=== PATIENT | female | born 1960 | race Caucasian/White ===

== ENCOUNTER 2017-04-28 13:50 | Day surgery (SDC) | payer MEDICAID ==
[2017-04-28] MEDS ORDERED: LR 1,000 ML IV ONE (14:10)
[2017-04-28] MEDS ORDERED: LIDOCAINE 1% 2 ML INJ ID PRN (14:10)
[2017-04-28 14:27] VITALS: PULSE 105
[2017-04-28] MEDS ORDERED: PROPOFOL/EMULSION 500 MG/50 ML BOTTLE IV ONE (14:38)
[2017-04-28] MEDS ORDERED: fentaNYL 100 MCG/2 ML INJ ONE (14:38)
[2017-04-28] MEDS ORDERED: LIDOCAINE 2% 100 MG/5 ML SYR ONE (14:38)
--- NOTE | 2017-04-28 14:42 | PDHPUP ---
History & Physical Update H&P update statement: This history and physical update is based on an assessment of the patient which was completed after admission or registration (within 24 hours), but prior to the surgery/procedure. H&P update: H&P reviewed & patient examined, no change in patient's condition since H&P completed
--- NOTE | 2017-04-28 14:59 | POSTOPPROG ---
Post Op Note Date of Operation: 04/28/17 Surgeon: Marshall Smith Pre-op Diagnosis: Colovesicular fistula. Family h/o CRC Post-op Diagnosis: Diverticulosis. Inf/Abcess present in the surg proc area at time of surgery?: No
--- NOTE | 2017-04-28 15:01 | PDANEPAE ---
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 - Liver History Hx Hepatic Disorders: No - Neurological & Psychiatric Hx Hx Neurological and Psychiatric Disorders: No - Cancer History Hx Cancer: No - Congenital Disorder History Hx Congenital Disorders: No - GI History Hx Gastrointestinal Disorders: Yes Gastrointestinal History Comment: ABCESS AND DIVERTICULITS - Other Health History Other Health History: NONE - Chronic Pain History Chronic Pain: No - Surgical History Prior Surgeries: KNEE REPLACEMENT 04/06/17 ANE Review of Systems Review of Systems: - Exercise capacity METS (RN): 5 METS ANE Patient History - Allergies Allergies/Adverse Reactions: No Known Allergies Allergy (Verified 04/16/17 10:17) - NPO status NPO Since - Liquids (Date): 04/28/17 NPO Since - Liquids (Time): 11:00 NPO Since - Solids (Date): 04/25/17 - Smoking Hx Smoking Status: Never smoked - Family Anes Hx Family Hx Anesthesia Complications: NONE ANE Labs/Vital Signs - Vital Signs Blood Pressure: 145/112 Heart Rate: 105 Respiratory Rate: 20 O2 Sat (%): 99 Height: 162.56 cm Weight: 61.518 kg ANE Physical Exam - Airway Neck exam: FROM Mallampati Score: Class 1 Mouth exam: normal dental/mouth exam - Pulmonary Pulmonary: no respiratory distress - Cardiovascular Cardiovascular: regular rate and rhythym - ASA Status ASA Status: I ANE Anesthesia Plan Total IV Anesthesia: Yes
[2017-04-28] MEDS ORDERED: ALBUTEROL 3 ML DEYVIAL IH PRN (15:02)
[2017-04-28] MEDS ORDERED: NALOXONE HCL 0.4 MG/ML INJ IVP PRN (15:02)
--- NOTE | 2017-04-28 15:02 | POSTANESTH ---
Post Anesthetic Evaluation Cardiovascular Status: Normal, Stable Respiratory Status: Similar to Pre-op Cond. Level of Consciousness/Mental Status: Mildly Sleepy, Arousable Pain Control: Adequate, Prn Tx Ordered Nausea/Vomiting Control: Adequate, Prn Tx Ordered Complications Possibly Related to Anesthesia: None Noted
--- NOTE | 2017-04-28 15:05 | GIREPORT ---
[facility] Surgical Services - Endoscopy Department Patient Name: Sushila Houston Procedure Date: 04/28/2017 1:26 PM Patient Type: Outpatient Attending / ER Physician: Marshall Smith MD Procedure: Colonoscopy Indications: Colovesical fistula. Father with h/o CRC. Providers: Marshall Smith MD Medicines: General Anesthesia Complications: No immediate complications. Description of Procedure: After obtaining informed consent, the scope was passed under direct vis ion. Throughout the procedure, the patient's blood pressure, pulse, and oxyg en saturations were monitored continuously. The Colonoscope was introduced through the anus and advanced to the cecum, identified by appendiceal orifice and ileocecal valve. The colonoscopy was performed with ease. T he patient tolerated the procedure well. The quality of the bowel preparat ion was excellent. Findings: Multiple small-mouthed diverticula were found in the sigmoid colon. The exam was otherwise without abnormality. Estimated Blood Loss: Estimated blood loss: none. Post Op Diagnosis: - Diverticulosis in the sigmoid colon. - The examination was otherwise normal. - No specimens collected. Recommendation: - Discharge patient to home. - Resume previous diet. - Repeat colonoscopy in 5 years for surveillance. Attending Participation: I personally performed the entire procedure. Marshall Smith MD Marshall Smith MD 04/28/2017 3:03:57 PM This report has been signed electronicallyRobert MD Luis Number of Addenda: 0 Note Initiated On: 04/28/2017 1:26 PM Total Procedure Duration Time 0 hours 7 minutes 57 seconds [email or web address]
[2017-04-28 15:23] VITALS: RESP 20
[2017-04-28 15:38] VITALS: BP 157/98; TEMP 98.4; O2SAT 98
== END 2017-04-28 15:37 | disposition home or self-care (01) ==
LOC: FSGY 13:50
PROVIDERS: ATTEND Internal Medicine Gastroenterology
PROC: 0DJD8ZZ Inspection of Lower Intestinal Tract, Via Natural or Artificial Opening Endoscopic (ICD-10-PCS; principal; 2017-04-28 13:00)
DX: K57.30 Diverticulosis of large intestine without perforation or abscess without bleeding (principal); K63.2 Fistula of intestine
CPT/HCPCS: J2001; J2704; J3010

== ENCOUNTER → 2017-06-16 | Outpatient (CLI) | payer MEDICAID | LOC: BRMIMAGING 13:53 | PROVIDERS: ATTEND Internal Medicine Nephrology | DX: Z12.31 Encounter for screening mammogram for malignant neoplasm of breast (principal) ==

== ENCOUNTER → 2017-07-08 | Outpatient (CLI) | payer MEDICAID | LOC: BRMIMAGING 09:10 | DX: R92.8 Other abnormal and inconclusive findings on diagnostic imaging of breast (principal) ==

== ENCOUNTER 2018-05-26 13:27 | Day surgery (SDC) | payer MEDICAID ==
[2018-05-26] MEDS ORDERED: LR 1,000 ML IV ONE (14:07)
[2018-05-26 14:13] VITALS: BP 165/104
[2018-05-26] MEDS ORDERED: OPIUM/BELLADONNA ALKALO SUPP PR PRN (14:36)
[2018-05-26] MEDS ORDERED: levOFLOXACIN 500 MG/DEXTROSE 100 ML IV ONE (14:36)
== END 2018-05-26 15:08 | disposition home or self-care (01) ==
LOC: FSGY 13:27
PROVIDERS: ATTEND Urology
DX: N32.9 Bladder disorder, unspecified (principal); I10 Essential (primary) hypertension; Z87.440 Personal history of urinary (tract) infections; Z53.09 Procedure and treatment not carried out because of other contraindication

== ENCOUNTER → 2018-06-17 | Outpatient (CLI) | payer MEDICAID | LOC: BRMIMAGING 08:07 | DX: Z12.31 Encounter for screening mammogram for malignant neoplasm of breast (principal) ==